=== PATIENT | female | born 1950 | race Caucasian/White ===

== ENCOUNTER → 2016-07-30 | Outpatient (CLI) | payer MEDICARE | LOC: EMI 17:24 | DX: M25.512 Pain in left shoulder (principal); M50.21 Other cervical disc displacement, high cervical region; M47.812 Spondylosis without myelopathy or radiculopathy, cervical region | CPT/HCPCS: 72141 ==

== ENCOUNTER → 2021-04-02 | Outpatient (CLI) | payer MEDICARE ==
[2021-04-02 16:41] LABS: HEMOGLOBIN 14.8 gm/dl (12.3-15.3); RED BLOOD COUNT 4.72 M/UL (4.00-5.10); WHITE BLOOD COUNT 8.8 K/UL (4.5-11.0)
== END ==
LOC: LAB 16:07
PROVIDERS: Nurse Practitioner
DX: F17.299 Nicotine dependence, other tobacco product, with unspecified nicotine-induced disorders (principal); I10 Essential (primary) hypertension; E78.5 Hyperlipidemia, unspecified; R53.83 Other fatigue; E55.9 Vitamin D deficiency, unspecified; E11.9 Type 2 diabetes mellitus without complications
CPT/HCPCS: 36415; 71046; 80053; 80061; 81001; 83036; 84436; 84443; 84480; 85025

== ENCOUNTER → 2021-09-25 | Outpatient (CLI) | payer MEDICARE ==
[2021-09-25 12:11] LABS: HEMOGLOBIN 14.6 gm/dl (12.3-15.3); RED BLOOD COUNT 4.75 M/UL (4.00-5.10); WHITE BLOOD COUNT 7.1 K/UL (4.5-11.0)
[2021-09-25 12:37] LABS: BUN/CREATININE RATIO 20 (0-10)
[2021-09-26 08:14] LABS: CHOLESTEROL, TOTAL 225 mg/dL (100-199); HDL CHOLESTEROL 63 mg/dL (>39); LDL CHOLESTEROL CALC 132 mg/dL (0-99); LDL/HDL RATIO 2.1 ratio (0.0-3.2); T. CHOL/HDL RATIO 3.6 ratio (0.0-4.4); TRIGLYCERIDES 173 mg/dL (0-149); VITAMIN D, 25-HYDROXY 41.8 ng/mL (30.0-100.0)
[2021-09-26 09:14] LABS: THYROXINE (T4) 8.5 ug/dL (4.5-12.0); TRIIODOTHYRONINE (T3) 135 ng/dL (71-180)
[2021-09-27 10:14] LABS: ESTIM. AVG GLU (EAG) 154 mg/dL (.)
== END ==
LOC: LAB 10:57
PROVIDERS: Nurse Practitioner
DX: I10 Essential (primary) hypertension (principal); E78.5 Hyperlipidemia, unspecified; R53.83 Other fatigue; E55.9 Vitamin D deficiency, unspecified
CPT/HCPCS: 36415; 80053; 80061; 81001; 83036; 84436; 84443; 84480; 85025